=== PATIENT | male | born 2005 ===

== ENCOUNTER → 2025-02-01 | Outpatient (REF) | payer OTHER | LOC: M LAB REF 21:16 | PROVIDERS: ATTEND Physician Assistant | DX: B34.9 Viral infection, unspecified (principal); J02.9 Acute pharyngitis, unspecified ==

== ENCOUNTER → 2025-02-06 | Outpatient (REF) | payer SELFPAY | LOC: M LAB REF 21:15 | PROVIDERS: ATTEND Physician Assistant Medical | DX: B34.9 Viral infection, unspecified (principal) ==